=== PATIENT | male | born 1965 | race Caucasian/White ===

== ENCOUNTER 2018-09-04 18:28 | Emergency (ER) | payer SELFPAY ==
[2018-09-04 18:35] VITALS: BP 154/87; PULSE 86; TEMP 99.2; BMI 28.8
[2018-09-04] MEDS ORDERED: LIDOCAINE 5% TOPICAL PATCH TP ONE (18:39)
[2018-09-04] MEDS ORDERED: LIDOCAINE 5% TOPICAL PATCH ONE (18:45)
[2018-09-04] MEDS ORDERED: IBUPROFEN 600 MG TABLET (FP) PO ONE ×2 (18:51→19:13)
--- NOTE | 2018-09-04 18:54 | PDOC ---
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 No head injury or LOC. Complains of primarily sharp anterior chest pain, nonradiating, able to point with this finger and associated with twisting and certain positions. Shortness of breath, headache, dizziness, palpitations, abdominal pain, nausea vomiting, weakness or paresthesias. No back or neck pain. No other associated injuries after he fell. Current smoker. Meds taken prior to presentation 09/04/18 18:59 Past History - Past Medical History Allergies/Adverse Reactions: Allergies Allergy/AdvReac Type Severity Reaction Status Date / Time No Known Allergies Allergy Verified 09/04/18 18:29 Home Medications: Ambulatory Orders Cyclobenzaprine HCl [Flexeril 10 mg] 10 mg PO BID PRN #12 tablet 09/04/18 Ibuprofen 600 mg PO TID PRN #20 tablet 09/04/18 Lidocaine 5% Patch [Lidoderm Patch -] 1 patch TP DAILY PRN #7 patch 09/04/18 Ranitidine HCl [Zantac] 150 mg PO DAILY 09/04/18 COPD: No GI Disorders: Yes (GERD, DIVERTICULOSIS) Liver Disease: Yes (HEP B-C) Thyroid Disease: Yes - Suicide/Smoking/Psychosocial Hx Smoking Status: Yes Smoking History: Current every day smoker Have you smoked in the past 12 months: Yes Number of Cigarettes Smoked Daily: 20 Information on smoking cessation initiated: Yes 'Breaking Loose' booklet given: 04/21/13 Hx Alcohol Use: No Substance Use Type: None Review of Systems - Review of Systems Able to Perform ROS?: Yes Comments:: 09/04/18 18:53 Review of systems HEENT: no headache or dizziness. CVS: no syncope. +chest pain Resp: no sob. Gastrointestinal: no abdominal pain, nausea or vomiting. MUSCULOSKELETAL: No joint pain and swelling. No neck or back pain. SKIN: no redness or skin changes, no discharge, no rash. No wounds. Hematologic: no easy bruising/bleeding. NEUROLOGIC: No headache, dizziness, LOC or altered mental status. No weakness, numbness or tingling. Allergic/Immunologic: no allergies All other systems reviewed and negative, or as documented in HPI. *Physical Exam - Vital Signs Last Vital Signs Temp Pulse Resp BP Pulse Ox 99.2 F 86 18 154/87 100 09/04/18 18:28 09/04/18 18:28 09/04/18 18:28 09/04/18 18:28 09/04/18 18:28 - Physical Exam Comments: 09/04/18 18:54 Physical exam: General: Well appearing, awake and alert, NAD. HEENT: NCAT, PERRL, EOMI, clear conjunctiva, anicteric, moist mucus membranes, clear oropharynx, no oral lesions.. Neck: neck supple, FROM Resp: CTAB, normal and even respirations, no respiratory distress CVS: RRR, no murmurs, 2+ peripheral pulses throughout, no peripheral edema Chest: right anterior chest wall point tenderness, no crepitus. no overlying discoloration, ecchymosis. Abdomen: soft, NTND, no peritoneal signs. Back: nontender, normal inspection and ROM MSK: no edema, PARKER x4, ROM intact. No clubbing or cyanosis. normal bulk and tone. Neuro: alert, no focal neuro deficits. Skin: warm and well perfused, cap refill <2 sec, normal color ED Treatment Course - RADIOLOGY Radiology Studies Ordered: Category Date Time Status RIBS RIGHT SIDE [RAD] Stat Radiology 09/04/18 18:38 Ordered Medical Decision Making - Medical Decision Making 09/04/18 18:59 History of physical examination as documented. He is notable for right anterior chest wall point reproducible tenderness secondary to his mechanical trip and fall Differential diagnosis includes pneumothorax, pleurisy, contusion, rib fracture cxr neg for ptx, clear markings, no effusion, no definitive rib fx. normal cardiac silhouette. ED course here includes analgesia including ibuprofen and topical Lidoderm. We' ll provide also relaxant as needed for muscle spasms. Advised to quit smoking. He breathing exercises encouraged, appropriate pain control and adequate rest. Fall prevention safety reviewed as well. Pt to be discharged in stable condition. Patient and family made aware of impression and plan, return precautions discussed (including but not limited to worsening pain or symptoms), fevers, or signs of infection, chest pain, respiratory distress, inability to tolerate oral intake, dehydration, syncope, or neurologic changes). Follow up with PMD and/or specialist as recommended, follow up information provided, take medications as instructed for duration of time. continue with supportive care, avoid triggers and precipitants. All questions answered to patient's satisfaction and expressed understanding and comfort with this. Patient does not suffer from an acute life-threatening medical condition at this time and is safe for outpatient follow-up. 09/04/18 19:31 *DC/Admit/Observation/Transfer Diagnosis at time of Disposition: Contusion, chest wall - Discharge Dispostion Disposition: HOME Condition at time of disposition: Stable Decision to Admit order: No - Prescriptions Prescriptions: Cyclobenzaprine HCl [Flexeril 10 mg] 10 mg PO BID PRN #12 tablet PRN Reason: Muscle Spasms Ibuprofen 600 mg PO TID PRN #20 tablet PRN Reason: Pain Lidocaine 5% Patch [Lidoderm Patch -] 1 patch TP DAILY PRN #7 patch PRN Reason: Pain - Referrals Referrals: [facility] [place] [facility] [Provider Group] [facility] [Provider Group] - Patient Instructions Printed Discharge Instructions: DI for Rib Contusion, How to Prevent Falls Additional Instructions: you most likely have musculoskeletal strain of your chest wall avoid heavy lifting or strenuous activity to minimize further injury flexeril is a muscle relaxant, take three times a day as needed may cause sleepiness, do not drive or operate machinery or take with alcohol. topical lidoderm patch to the area affected, 12 hours on and 12 hours off.. this can also be taken over the counter as well. May take ibuprofen 400-600mg and/or tylenol 650 mg every 6 hours as needed for mild to moderate pain, available over the counter. This does not require narcotics, as it will precipitate injuries and falls. continue with range of motion exercises, as this will facilitate the healing process; avoid being bed bound and immobile. deep breathing exercises every hour encouraged - Post Discharge Activity
== END 2018-09-04 19:42 | disposition home or self-care (01) ==
LOC: FER 18:28
DX: S20.219A Contusion of unspecified front wall of thorax, initial encounter (principal); W18.39XA Other fall on same level, initial encounter; Y93.89 Activity, other specified; Y92.89 Other specified places as the place of occurrence of the external cause; Y99.0 Civilian activity done for income or pay; K21.9 Gastro-esophageal reflux disease without esophagitis; E07.9 Disorder of thyroid, unspecified; B19.10 Unspecified viral hepatitis B without hepatic coma; B19.20 Unspecified viral hepatitis C without hepatic coma; F17.210 Nicotine dependence, cigarettes, uncomplicated
CPT/HCPCS: 71101-TC-RT-FY; 99284-25

== ENCOUNTER 2019-05-19 01:01 | Emergency (ER) | payer SELFPAY ==
[2019-05-19 01:09] VITALS: BP 180/95; PULSE 98; TEMP 98.1; BMI 29.5
--- NOTE | 2019-05-19 01:24 | PDOC ---
History of Present Illness - General Chief Complaint: Edema Stated Complaint: RIGHT LEG SWOLLEN/RASH Time Seen by Provider: 05/19/19 01:23 History Source: Patient Exam Limitations: No Limitations - History of Present Illness Initial Comments: 05/19/19 06:48 redness on RLE b/l LE swelling Timing/Duration: unsure Severity: mild Modifying Factors: worse with: movement Associated Symptoms: denies: fever/chills Past History - Past Medical History Allergies/Adverse Reactions: Allergies Allergy/AdvReac Type Severity Reaction Status Date / Time No Known Allergies Allergy Verified 05/19/19 01:04 Home Medications: Ambulatory Orders Cephalexin [Keflex] 500 mg PO QID #40 capsule 05/19/19 Esomeprazole Magnesium [Nexium 24Hr] 20 mg PO DAILY 05/19/19 COPD: No GI Disorders: Yes (GERD, DIVERTICULOSIS) Liver Disease: Yes (HEP B-C) Thyroid Disease: Yes - Psycho Social/Smoking Cessation Hx Smoking Status: Yes Smoking History: Current every day smoker Have you smoked in the past 12 months: Yes Number of Cigarettes Smoked Daily: 20 Information on smoking cessation initiated: Yes 'Breaking Loose' booklet given: 04/21/13 Hx Alcohol Use: No Drug/Substance Use Hx: No Substance Use Type: None Review of Systems - Review of Systems All Other Systems: Reviewed and Negative *Physical Exam - Vital Signs Last Vital Signs Temp Pulse Resp BP Pulse Ox 98.1 F 98 H 18 180/95 H 100 05/19/19 01:06 05/19/19 01:06 05/19/19 01:06 05/19/19 01:06 05/19/19 01:06 - Physical Exam General Appearance: Yes: Nourished, Appropriately Dressed HEENT: positive: Normal Voice. negative: Scleral Icterus (R), Scleral Icterus ( L) Respiratory/Chest: positive: Chest Tender, Lungs Clear Cardiovascular: positive: Regular Rhythm Gastrointestinal/Abdominal: negative: Tender, Pulsatile Mass Musculoskeletal: positive: Normal Inspection Extremity: positive: Other (b/l edema; area of warmth and redness on distal RLE) Neurologic: positive: Fully Oriented ED Treatment Course - LABORATORY CBC & Chemistry Diagram: 05/19/19 01:45 05/19/19 01:39 Medical Decision Making - Medical Decision Making 05/19/19 06:50 cirrhosis cellulitis abx needs liver fu Discharge - Discharge Information Problems reviewed: Yes Clinical Impression/Diagnosis: Cellulitis Qualifiers: Site of cellulitis: extremity Site of cellulitis of extremity: lower extremity Laterality: right Qualified Code(s): L03.115 - Cellulitis of right lower limb Condition: Stable Disposition: HOME - Additional Discharge Information Prescriptions: Cephalexin [Keflex] 500 mg PO QID #40 capsule - Follow up/Referral - Patient Discharge Instructions Patient Printed Discharge Instructions: DI for Cellulitis -- Adult Additional Instructions: Follow-up with a specialty liver clinic - Post Discharge Activity
[2019-05-19 02:20] LABS: BASO % 0.9 % (0-2.0); EOS % 4.8 % (0-4.5); HEMATOCRIT 42.3 % (35.4-49); HEMOGLOBIN 14.3 GM/dL (11.7-16.9); LYMPH % 31.2 % (8-40); MCH 33.9 pg (25.7-33.7); MCHC 33.9 g/dl (32.0-35.9); MEAN CELL VOLUME 99.8 fl (80-96); MEAN PLT VOLUME 10.4 fl (7.5-11.1); MONO % 9.6 % (3.8-10.2); NEUT % 53.5 % (42.8-82.8); PLATELET COUNT 82 K/MM3 (134-434); RBC 4.23 M/mm3 (4.00-5.60); RDW 16.4 % (11.9-15.9); WHITE BLOOD COUNT 6.4 K/mm3 (4.0-10.0)
[2019-05-19 02:33] LABS: ALBUMIN 2.7 g/dl (3.4-5.0); BILIRUBIN,TOTAL 3.8 mg/dL (0.2-1); BLOOD UREA NITROGEN 9.4 mg/dL (7-18); CALCIUM 8.1 mg/dL (8.5-10.1); CREATININE 0.6 mg/dL (0.55-1.3); POTASSIUM 3.7 mmol/L (3.5-5.1); TOT PROT 7.1 g/dl (6.4-8.2)
[2019-05-19] MEDS ORDERED: CEPHALEXIN MONOHYDRATE 500 MG CAPSULE (UD) PO ONE (02:54)
[2019-05-19] MEDS ORDERED: CEPHALEXIN MONOHYDRATE 500 MG CAPSULE (UD) ONE (03:00)
== END 2019-05-19 03:04 | disposition home or self-care (01) ==
LOC: FER 01:01
DX: L03.115 Cellulitis of right lower limb (principal); F17.210 Nicotine dependence, cigarettes, uncomplicated; E07.9 Disorder of thyroid, unspecified; B19.10 Unspecified viral hepatitis B without hepatic coma; B19.20 Unspecified viral hepatitis C without hepatic coma
CPT/HCPCS: 36415; 71046-TC-FY; 80053; 83690; 85025; 85379; 99282-25